=== PATIENT | male | born 1965 | race Caucasian/White ===

== ENCOUNTER 2021-06-28 12:55 | Emergency (ER) | payer MEDICAID, OTHER ==
[2021-06-28 13:46] LABS: ANION GAP 11.9 mmol/L (5-15); CHLORIDE,CL 96 mmol/L (98-107); SODIUM,NA 131 mmol/L (136-145)
[2021-06-28] MEDS ORDERED: oxyCODONE 5 MG Tab PO ONE (14:44)
[2021-06-28] MEDS ORDERED: Bacitracin/Neomycin/Polymyxin B Oint 0.9 GM U/D Packet ONE (15:01)
== END 2021-06-28 16:05 ==
LOC: KA.ED 12:55
DX: S93.325A Dislocation of tarsometatarsal joint of left foot, initial encounter (principal); E11.9 Type 2 diabetes mellitus without complications; Z79.4 Long term (current) use of insulin; Z79.02 Long term (current) use of antithrombotics/antiplatelets
CPT/HCPCS: 36415; 73600-LT; 73620-LT; 80048; 85025; 99283; 99283-25; A9270-GY